=== PATIENT | female | born 1995 | race Two or more races ===

== ENCOUNTER 2019-11-08 12:03 | Observation (INO) | payer SELFPAY ==
[2019-11-08] MEDS ORDERED: ACETAMINOPHEN 325 MG TABLET. PO PRN (13:15)
[2019-11-08] MEDS ORDERED: ONDANSETRON PF 4 MG/2 ML VIAL. IVP PRN (13:15)
[2019-11-08] MEDS ORDERED: IV RINGERS,LACTATED 1000ML 1,000 ML IV SCH (13:15)
[2019-11-08 13:35] LABS: BILIRUBIN,URINE NEGATIVE (NEG); CLARITY,URINE CLEAR; COLOR,URINE YELLOW; NITRITE,URINE NEGATIVE (NEG); PH,URINE 7.5 (<5.0-8.0); PROTEIN,URINE NEGATIVE (NEG-TRACE); UROBILINOGEN,URINE 0.2 mg/dL (0.2 mg/dL)
[2019-11-08 13:49] LABS: BARBITURATES NEG (NEG); BENZODIAZEPINES NEG (NEG); CANNABINOIDS NEG (NEG); COCAINE NEG (NEG); METHADONE NEG (NEG); OPIATES NEG (NEG); PHENCYCLIDINE NEG (NEG)
[2019-11-08 13:50] LABS: AMPHETAMINE/METHAMPHETAMINE NEG (NEG)
[2019-11-08 13:51] LABS: SQUAMOUS EPITHELIAL CELL,UR MANY /LPF
[2019-11-08 13:52] LABS: BACTERIA,URINE MODERATE /HPF (0-FEW); RBC,URINE 0 /HPF (0-2)
== END 2019-11-08 14:20 | disposition home or self-care (01) ==
LOC: 3 SO LND 12:03
PROVIDERS: ADMIT Obstetrics & Gynecology; ATTEND Obstetrics & Gynecology
DX: O99.89 Other specified diseases and conditions complicating pregnancy, childbirth and the puerperium (principal); M54.5 Low back pain; Z3A.28 28 weeks gestation of pregnancy; Z79.899 Other long term (current) drug therapy
CPT/HCPCS: 80307; 81001; 87086; G0378; G0379

== ENCOUNTER → 2020-01-21 | Outpatient (CLI) | payer SELFPAY | END | disposition home or self-care (01) | LOC: LAB 11:56 | PROVIDERS: ATTEND Obstetrics & Gynecology | DX: Z20.828 Contact with and (suspected) exposure to other viral communicable diseases (principal) | CPT/HCPCS: U0003-CS ==

== ENCOUNTER 2020-01-25 09:39 | Inpatient (IN) | payer SELFPAY ==
[~2020-01-25] VITALS: Ht 144.8 cm; Wt 56.7 kg
[2020-01-25] MEDS ORDERED: CITRIC ACID/SODIUM CITRATE 30 ML SOLUTION. PO ONE (10:00)
[2020-01-25] MEDS ORDERED: IBUPROFEN 400 MG TABLET. PO PRN (10:00)
[2020-01-25] MEDS ORDERED: 0.9 % SODIUM CHLORIDE 10 ML DISP.SYRIN. IV PRN ×2 (10:00→13:45)
[2020-01-25] MEDS ORDERED: OXYTOCIN 30 UNIT/500 ML PREMIX 500 ML IV PRN ×3 (10:00→13:45)
[2020-01-25] MEDS ORDERED: TERBUTALINE 1 MG/ML VIAL. SQ PRN (10:00)
[2020-01-25] MEDS ORDERED: LIDOCAINE 1% PF 30 ML VIAL. INJ PRN (10:00)
[2020-01-25 10:25] VITALS: BP 102/64
[2020-01-25 10:48] LABS: BASO % 0 % (0-3); EOS # 0.1 x10^3/uL (0.0-0.7); EOS % 1 % (0-3); HEMATOCRIT 30.4 % (36.0-47.0); HEMOGLOBIN 9.6 g/dL (12.0-15.5); LYMPH # 2.8 x10^3/uL (1.0-4.8); LYMPH % 29 % (24-48); MEAN CORPUSCULAR HEMOGLOBIN 21 pg (25-35); MEAN CORPUSCULAR HGB CONC 32 g/dL (31-37); MEAN CORPUSCULAR VOLUME 66 fL (79-100); MONO # 0.6 x10^3/uL (0.0-1.1); MONO % 6 % (0-9); NEUT # 6.2 x10^3/uL (1.8-7.7); NEUT % 64 % (31-73); PLATELET COUNT 333 x10^3/uL (140-400); RED BLOOD COUNT 4.63 x10^6/uL (3.50-5.40); RED CELL DISTRIBUTION WIDTH 15.6 % (11.5-14.5)
[2020-01-25] MEDS: IV RINGERS,LACTATED 1000ML 1,000 ML IV SCH ×3 (11:11→15:49)
[2020-01-25] MEDS ORDERED: OXYTOCIN 10 UNIT/ML VIAL. ONE ×3 (11:24→13:02)
[2020-01-25] MEDS ORDERED: PHENYLEPHRINE in 0.9% NACL PF 1 MG/10 ML SYRINGE. IV ONE (11:24)
[2020-01-25] MEDS ORDERED: ePHEDrine PF IN SALINE 50 MG/10 ML SYRINGE. IV ONE (11:24)
[2020-01-25] MEDS ORDERED: ONDANSETRON PF 4 MG/2 ML VIAL. ONE (11:24)
[2020-01-25] MEDS ORDERED: MORPHINE PF 10 MG/10 ML AMPUL. ONE (11:25)
[2020-01-25] MEDS ORDERED: fentaNYL PF VIAL 100 MCG/2 ML VIAL ONE (11:25)
[2020-01-25 11:30] LABS: HYPOCHROMIA PRESENT; MICROCYTOSIS PRESENT; PLT ESTIMATE ADEQUATE (ADEQUATE); WHITE BLOOD COUNT 9.7 x10^3/uL (4.0-11.0)
--- NOTE | 2020-01-25 12:43 | PDOC1 ---
OB - History Hx of Present Care: Good Care Ultrasounds: Normal mid trimester US Obstetrical Complications: None Medical Complications: None Past Family/Social History * Past Medical, Surgical, Family and Obstetric Histories reviewed from chart. Rubella: Immune RPR/VDRL: Negative GBS Status: Negative HBsAG: Negative OB - Chief Complaint & HPI Date of Admission: Date of Admission: Jan 25, 2020 at 09:39 Chief Complaint/History : 2 Para: 1 EGA: 39 Reason for admission: section Indication for : desires repeat Admission Nurse Assessment Rev: Yes OB - Admission Exam Physical Exam Vitals: VS - Last 72 Hours, by Label Date Time Temp Pulse Resp B/P (MAP) Pulse Ox O2 Delivery O2 Flow Rate FiO2 01/25/20 10:25 98.9 97 20 102/64 (77) 98.9 HEENT: Normal Heart: Regular Rate Lungs: Clear Abdomen: Gravid, Non tender, Soft Extremities: Edema Reflexes: Normal Cervical Dilatation: None Effacement: 25% Station: -3 Membranes: Intact Accelerations: Accelerations Present Decelerations: No decelerations Contractions on Admission: >10 Minutes Apart Text A: 39 wks IUP Previous c/s P; Admit repeat c/s. YANET LLANES Jr, MD Jan 25, 2020 12:43
--- NOTE | 2020-01-25 13:36 | PDOC4 ---
OB Operative Note Date: Jan 25, 2020 PRE OP DIAGNOSIS: Previoujs C- section POST OP DIAGNOSIS: Previous C- section OPERATION PERFORMED: R [facility] Surgeon Dr. Strickland Anesthesia: Regional (Spinal) Blood Loss 500 ml Specimen placenta and OB Findings: Position (Breech), Sex (Male), (8/9), Weight (6 Lb 12 oz) Complications none Additional Remarks pt. YANET Trejo Jr, MD Jan 25, 2020 13:36
[2020-01-25] MEDS ORDERED: SIMETHICONE 80 MG TAB.CHEW PO PRN (13:45)
[2020-01-25] MEDS ORDERED: ZOLPIDEM 5 MG TABLET. PO PRN (13:45)
[2020-01-25] MEDS ORDERED: MAG HYDROX/ALUMINUM HYD/SIMETH 30 ML ORAL.SUSP PO PRN (13:45)
[2020-01-25] MEDS ORDERED: ONDANSETRON PF 4 MG/2 ML VIAL. IV PRN (13:45)
[2020-01-25] MEDS ORDERED: diphenhydrAMINE ORAL ELIXIR 12.5 MG/5 ML ML PO PRN (13:45)
[2020-01-25] MEDS ORDERED: KETOROLAC 30 MG/ML VIAL. IV PRN (13:45)
--- NOTE | 2020-01-25 13:55 | OP ---
DATE OF SURGERY: 01/25/2020 PREOPERATIVE DIAGNOSES: 1. A 39 weeks intrauterine . 2. Previous section. POSTOPERATIVE DIAGNOSES: 1. A 39 weeks intrauterine . 2. Previous section. PROCEDURE: Repeat low transverse section. SURGEON: Yanet Strickland MD ANESTHESIA: Spinal. ESTIMATED BLOOD LOSS: 500 mL. COMPLICATIONS: None. FINDINGS: Viable male infant, Apgars 8 and 9, weight 6 pounds 12 ounces. Three-vessel cord placenta delivered manually intact. SUMMARY: A 24-year-old 2, para 1 at 39 weeks, presented for repeat section. She was counseled on the risks, benefits and expectations and voiced clear understanding to proceed. DESCRIPTION OF PROCEDURE: Pfannenstiel skin incision was made with the scalpel down to and through the fascia. Fascia was extended laterally using curved Price scissors. The superior edge of fascia was grasped with two Beto clamps and dissected free of the abdominal rectus muscle using blunt dissection along with Bovie cautery. The same process took place inferiorly. The abdominal rectus muscle dissected bluntly at the midline. Peritoneum was grasped with 2 hemostats and entered sharply with Metzenbaum scissors. This incision was extended superiorly as well as inferiorly. The Wilber ring retractor was placed. A low transverse hysterotomy incision was made with scalpel down to the infant. Hysterotomy incision was extended laterally and superiorly digitally. The was found to be breech presentation. With the aid of fundal pressure, the infant's buttocks was delivered up to the knees in which the legs were flexed and both legs were delivered. With additional fundal pressure, the infant to the subscapular region was delivered, in which both arms were flexed and delivered. With additional fundal pressure, the 's head was delivered in atraumatic manner. The was suctioned with bulb syringe orally and nasally, umbilical cord was clamped twice and cut and viable male infant was handed to waiting nursing staff. Umbilical cord blood was then obtained. Three-vessel cord placenta was delivered manually intact. The uterus was then exteriorized and cleared of clot and debris with moist lap. Hysterotomy incision was reapproximated using #1 Vicryl suture in running locked fashion and imbricated layer of #1 Vicryl suture in running fashion was placed. A [id number] was placed in the midline of the hysterotomy incision for better hemostasis. Uterus palpated firm. Fallopian tubes and ovaries appeared normal bilaterally. Posterior cul-de-sac was cleared of clot and debris with moist lap. The uterus was then returned to the abdomen. The pericolic gutters were cleared of clot and debris with moist lap. Hysterotomy incision was reviewed and was hemostatic. The Wilber ring retractor was removed. The peritoneum was reapproximated using #1 Vicryl suture in a running fashion. The abdominal rectus muscles were reapproximated using 1 Vicryl suture in running fashion as well. The fascia was reapproximated using Stratafix in running fashion. Skin was reapproximated using 4-0 Vicryl suture in subcuticular manner. The patient tolerated the procedure well and was taken to recovery room in stable condition. Sponge and needle count correct x 3. YANET STRICKLAND MD DR: JATINDER/wesley JOB#: [id number] / [id number]
[2020-01-25 16:30] VITALS: BP 103/66
[2020-01-25 17:00] VITALS: BP 99/57
[2020-01-25 18:00] VITALS: BP 103/63
[2020-01-25] MEDS ORDERED: FLU VACC QS 2020-21(6MOS+)/PF 0.5 ML SYRINGE. VAX IM ONE (18:00)
[2020-01-25] MEDS: KETOROLAC 30 MG/ML VIAL. IV PRN (21:16)
[2020-01-25 21:47] VITALS: BP 97/58
[2020-01-26] MEDS: IV RINGERS,LACTATED 1000ML 1,000 ML IV SCH (01:44)
[2020-01-26 02:00] VITALS: BP 90/60
[2020-01-26] MEDS: KETOROLAC 30 MG/ML VIAL. IV PRN (05:49)
[2020-01-26 06:00] VITALS: BP 94/65
[2020-01-26 07:36] LABS: BASO # 0.1 x10^3/uL (0.0-0.2); BASO % 1 % (0-3); EOS # 0.1 x10^3/uL (0.0-0.7); EOS % 1 % (0-3); HEMATOCRIT 26.7 % (36.0-47.0); HEMOGLOBIN 8.5 g/dL (12.0-15.5); LYMPH # 1.9 x10^3/uL (1.0-4.8); LYMPH % 23 % (24-48); MEAN CORPUSCULAR HEMOGLOBIN 21 pg (25-35); MEAN CORPUSCULAR HGB CONC 32 g/dL (31-37); MEAN CORPUSCULAR VOLUME 66 fL (79-100); MONO # 0.6 x10^3/uL (0.0-1.1); MONO % 8 % (0-9); NEUT # 5.6 x10^3/uL (1.8-7.7); NEUT % 68 % (31-73); PLATELET COUNT 288 x10^3/uL (140-400); RED BLOOD COUNT 4.04 x10^6/uL (3.50-5.40); RED CELL DISTRIBUTION WIDTH 15.9 % (11.5-14.5); WHITE BLOOD COUNT 8.2 x10^3/uL (4.0-11.0)
[2020-01-26 10:25] VITALS: BP 98/64
[2020-01-26] MEDS: DOCUSATE SODIUM 100 MG CAPSULE. PO PRN (10:47)
[2020-01-26] MEDS: MULTIVITAMIN with MINERAL TABLET. PO SCH (10:47)
--- NOTE | 2020-01-26 12:35 | PDOC ---
OB Progress Note Date of Service 01/26/20 Time of Evaluation 1230 Notes Pt. feeling well. No complaints. Pain controlled. Pt. tolerating regular diet and ambulating. Lab Laboratory Tests Test 01/25/20 10:20 01/26/20 07:25 White Blood Count 9.7 x10^3/uL (4.0-11.0) 8.2 x10^3/uL (4.0-11.0) Red Blood Count 4.63 x10^6/uL (3.50-5.40) 4.04 x10^6/uL (3.50-5.40) Hemoglobin 9.6 g/dL (12.0-15.5) 8.5 g/dL (12.0-15.5) Hematocrit 30.4 % (36.0-47.0) 26.7 % (36.0-47.0) Mean Corpuscular Volume 66 fL (79-100) 66 fL (79-100) Mean Corpuscular Hemoglobin 21 pg (25-35) 21 pg (25-35) Mean Corpuscular Hemoglobin Concent 32 g/dL (31-37) 32 g/dL (31-37) Red Cell Distribution Width 15.6 % (11.5-14.5) 15.9 % (11.5-14.5) Platelet Count 333 x10^3/uL (140-400) 288 x10^3/uL (140-400) Neutrophils (%) (Auto) 64 % (31-73) 68 % (31-73) Lymphocytes (%) (Auto) 29 % (24-48) 23 % (24-48) Monocytes (%) (Auto) 6 % (0-9) 8 % (0-9) Eosinophils (%) (Auto) 1 % (0-3) 1 % (0-3) Basophils (%) (Auto) 0 % (0-3) 1 % (0-3) Neutrophils # (Auto) 6.2 x10^3/uL (1.8-7.7) 5.6 x10^3/uL (1.8-7.7) Lymphocytes # (Auto) 2.8 x10^3/uL (1.0-4.8) 1.9 x10^3/uL (1.0-4.8) Monocytes # (Auto) 0.6 x10^3/uL (0.0-1.1) 0.6 x10^3/uL (0.0-1.1) Eosinophils # (Auto) 0.1 x10^3/uL (0.0-0.7) 0.1 x10^3/uL (0.0-0.7) Basophils # (Auto) 0.0 x10^3/uL (0.0-0.2) 0.1 x10^3/uL (0.0-0.2) Platelet Estimate Adequate (ADEQUATE) Hypochromasia Present Microcytosis Present Treponema pallidum Antibody Nonreactive (Nonreactive) Laboratory Tests Test 01/26/20 07:25 White Blood Count 8.2 x10^3/uL (4.0-11.0) Red Blood Count 4.04 x10^6/uL (3.50-5.40) Hemoglobin 8.5 g/dL (12.0-15.5) Hematocrit 26.7 % (36.0-47.0) Mean Corpuscular Volume 66 fL (79-100) Mean Corpuscular Hemoglobin 21 pg (25-35) Mean Corpuscular Hemoglobin Concent 32 g/dL (31-37) Red Cell Distribution Width 15.9 % (11.5-14.5) Platelet Count 288 x10^3/uL (140-400) Neutrophils (%) (Auto) 68 % (31-73) Lymphocytes (%) (Auto) 23 % (24-48) Monocytes (%) (Auto) 8 % (0-9) Eosinophils (%) (Auto) 1 % (0-3) Basophils (%) (Auto) 1 % (0-3) Neutrophils # (Auto) 5.6 x10^3/uL (1.8-7.7) Lymphocytes # (Auto) 1.9 x10^3/uL (1.0-4.8) Monocytes # (Auto) 0.6 x10^3/uL (0.0-1.1) Eosinophils # (Auto) 0.1 x10^3/uL (0.0-0.7) Basophils # (Auto) 0.1 x10^3/uL (0.0-0.2) Medications Current Medications Cefazolin Sodium/ Dextrose 50 ml @ 100 mls/hr 1X ONCE IV Last administered on 01/25/20at 11:45; Start 01/25/20 at 10:00; Stop 01/25/20 at 10:29; Status DC Citric Acid/ Sodium Citrate (Bicitra) 30 ml 1X ONCE PO Last administered on 01/25/20at 11:12; Start 01/25/20 at 10:00; Stop 01/25/20 at 10:07; Status DC Sodium Chloride (Normal Saline Flush) 3 ml QSHIFT PRN IV AFTER MEDS AND BLOOD DRAWS; Start 01/25/20 at 10:00 Ringer's Solution 1,000 ml @ 125 mls/hr Q8H IV Last administered on 01/26/20at 01:44; Start 01/25/20 at 09:49 Terbutaline Sulfate (Brethine) 0.25 mg 1X PRN PRN SQ SEE COMMENTS; Start 01/25/20 at 10:00; Stop 01/26/20 at 09:59; Status DC Lidocaine HCl (Xylocaine 1% Pf 30ml Vial) 30 ml 1X PRN PRN INJ SEE COMMENTS; Start 01/25/20 at 10:00; Stop 01/27/20 at 09:59 Oxytocin/Sodium Chloride 500 ml @ 0 mls/hr CONT PRN IV SEE I/O RECORD; Start 01/25/20 at 10:00 Oxytocin/Sodium Chloride 500 ml @ 0 mls/hr CONT PRN PRN IV Post delivery bleeding; Start 01/25/20 at 10:00 Ibuprofen (Motrin) 800 mg PRN Q6HRS PRN PO PAIN; Start 01/25/20 at 10:00; Stop 01/25/20 at 17:29; Status DC Ondansetron HCl (Zofran) 4 mg STK-MED ONCE .ROUTE ; Start 01/25/20 at 11:24; Stop 01/25/20 at 11:25; Status DC Phenylephrine HCl (PHENYLEPHRINE in 0.9% NACL PF) 1 mg STK-MED ONCE IV ; Start 01/25/20 at 11:24; Stop 01/25/20 at 11:25; Status DC Oxytocin (Pitocin) 10 unit STK-MED ONCE .ROUTE ; Start 01/25/20 at 11:24; Stop 01/25/20 at 11:25; Status DC Ephedrine Sulfate (ePHEDrine PF IN SALINE SYRINGE) 50 mg STK-MED ONCE IV ; Start 01/25/20 at 11:24; Stop 01/25/20 at 11:25; Status DC Morphine Sulfate (Morphine Preservative Free) 10 mg STK-MED ONCE .ROUTE ; Start 01/25/20 at 11:25; Stop 01/25/20 at 11:25; Status DC Fentanyl Citrate (Fentanyl 2ml Vial) 100 mcg STK-MED ONCE .ROUTE ; Start 01/25/20 at 11:25; Stop 01/25/20 at 11:25; Status DC Oxytocin (Pitocin) 10 unit STK-MED ONCE .ROUTE ; Start 01/25/20 at 13:02; Stop 01/25/20 at 13:02; Status DC Oxytocin (Pitocin) 10 unit STK-MED ONCE .ROUTE ; Start 01/25/20 at 13:02; Stop 01/25/20 at 13:02; Status DC Ketorolac Tromethamine (Toradol 30mg Vial) 30 mg PRN Q6HRS PRN IV PAIN Last administered on 01/26/20at 05:49; Start 01/25/20 at 13:15; Stop 01/30/20 at 13:14 Sodium Chloride (Normal Saline Flush) 3 ml QSHIFT PRN IV AFTER MEDS AND BLOOD DRAWS; Start 01/25/20 at 13:45 Oxytocin/Sodium Chloride 500 ml @ 125 mls/hr CONT PRN IV EXCESSIVE POST- BLEEDING; Start 01/25/20 at 13:45; Stop 01/25/20 at 21:44; Status DC Ibuprofen (Motrin) 800 mg PRN Q8HRS PRN PO INFLAMMATION; Start 01/25/20 at 1 3:45 Ondansetron HCl (Zofran) 4 mg PRN Q6HRS PRN IV NAUSEA/VOMITING; Start 01/25/20 at 13:45 Docusate Sodium (Colace) 100 mg PRN BID PRN PO HARD STOOL Last administered on 01/26/20at 10:47; Start 01/25/20 at 13:45 Al Hydroxide/Mg Hydroxide (Mylanta Plus Xs) 30 ml PRN Q4HRS PRN PO HEARTBURN / GAS; Start 01/25/20 at 13:45 Simethicone (Gas-X) 80 mg PRN AFTMEALHC PRN PO GAS / BLOATING; Start 01/25/20 at 13:45 Diphenhydramine HCl (Benadryl Oral Elixir) 12.5 mg PRN Q6HRS PRN PO ITCHING; Start 01/25/20 at 13:45 Ferrous Sulfate (Feosol) 325 mg BIDWMEALS PO ; Start 01/25/20 at 17:00 Zolpidem Tartrate (Ambien) 5 mg PRN QHS PRN PO INSOMNIA, MAY REPEAT X1; Start 01/25/20 at 13:45 Oxycodone/ Acetaminophen (Percocet 5/325) 2 tab PRN Q4HRS PRN PO MODERATE PAIN, SEVERE PAIN; Start 01/25/20 at 13:45 Ketorolac Tromethamine (Toradol 30mg Vial) 30 mg PRN Q6HRS PRN IV PAIN; Start 01/25/20 at 13:45; Stop 01/30/20 at 13:44 Multivitamins (Thera M Plus) 1 tab DAILY PO Last administered on 01/26/20at 10:47; Start 01/26/20 at 09:00 Influenza Virus Vaccine Quadrival (Fluzone Quad Syringe) 0.5 ml ONCE ONCE VAX IM ; Start 01/25/20 at 18:00; Stop 01/25/20 at 18:01; Status DC Exam Abd: soft, mild tenderness, fundus firm Incision site: clean, dry and intact Assessment POD#1 s/p repeat c/s Plan of Care: Continue current Tx, Mgmt YANET LLANES Jr, MD Jan 26, 2020 12:35
[2020-01-26 14:35] VITALS: BP 99/61
[2020-01-26] MEDS: IBUPROFEN 400 MG TABLET. PO PRN (14:56)
[2020-01-26 20:00] VITALS: BP 94/62
[2020-01-27 00:04] VITALS: BP 98/67
[2020-01-27] MEDS: oxyCODONE/APAP 5/325 1 TAB TABLET PO PRN ×2 (01:02→18:04)
[2020-01-27 06:43] VITALS: BP 98/66
[2020-01-27 08:10] VITALS: BP 98/64
--- NOTE | 2020-01-27 09:03 | PDOC ---
OB Progress Note Date of Service 01/27/20 Time of Evaluation 0900 Notes PT. feeling well. No complaints. Lab Laboratory Tests Test 01/25/20 10:20 01/26/20 07:25 White Blood Count 9.7 x10^3/uL (4.0-11.0) 8.2 x10^3/uL (4.0-11.0) Red Blood Count 4.63 x10^6/uL (3.50-5.40) 4.04 x10^6/uL (3.50-5.40) Hemoglobin 9.6 g/dL (12.0-15.5) 8.5 g/dL (12.0-15.5) Hematocrit 30.4 % (36.0-47.0) 26.7 % (36.0-47.0) Mean Corpuscular Volume 66 fL (79-100) 66 fL (79-100) Mean Corpuscular Hemoglobin 21 pg (25-35) 21 pg (25-35) Mean Corpuscular Hemoglobin Concent 32 g/dL (31-37) 32 g/dL (31-37) Red Cell Distribution Width 15.6 % (11.5-14.5) 15.9 % (11.5-14.5) Platelet Count 333 x10^3/uL (140-400) 288 x10^3/uL (140-400) Neutrophils (%) (Auto) 64 % (31-73) 68 % (31-73) Lymphocytes (%) (Auto) 29 % (24-48) 23 % (24-48) Monocytes (%) (Auto) 6 % (0-9) 8 % (0-9) Eosinophils (%) (Auto) 1 % (0-3) 1 % (0-3) Basophils (%) (Auto) 0 % (0-3) 1 % (0-3) Neutrophils # (Auto) 6.2 x10^3/uL (1.8-7.7) 5.6 x10^3/uL (1.8-7.7) Lymphocytes # (Auto) 2.8 x10^3/uL (1.0-4.8) 1.9 x10^3/uL (1.0-4.8) Monocytes # (Auto) 0.6 x10^3/uL (0.0-1.1) 0.6 x10^3/uL (0.0-1.1) Eosinophils # (Auto) 0.1 x10^3/uL (0.0-0.7) 0.1 x10^3/uL (0.0-0.7) Basophils # (Auto) 0.0 x10^3/uL (0.0-0.2) 0.1 x10^3/uL (0.0-0.2) Platelet Estimate Adequate (ADEQUATE) Hypochromasia Present Microcytosis Present Treponema pallidum Antibody Nonreactive (Nonreactive) Medications Current Medications Cefazolin Sodium/ Dextrose 50 ml @ 100 mls/hr 1X ONCE IV Last administered on 01/25/20at 11:45; Start 01/25/20 at 10:00; Stop 01/25/20 at 10:29; Status DC Citric Acid/ Sodium Citrate (Bicitra) 30 ml 1X ONCE PO Last administered on 01/25/20at 11:12; Start 01/25/20 at 10:00; Stop 01/25/20 at 10:07; Status DC Sodium Chloride (Normal Saline Flush) 3 ml QSHIFT PRN IV AFTER MEDS AND BLOOD DRAWS; Start 01/25/20 at 10:00 Ringer's Solution 1,000 ml @ 125 mls/hr Q8H IV Last administered on 01/26/20at 01:44; Start 01/25/20 at 09:49 Terbutaline Sulfate (Brethine) 0.25 mg 1X PRN PRN SQ SEE COMMENTS; Start 01/25/20 at 10:00; Stop 01/26/20 at 09:59; Status DC Lidocaine HCl (Xylocaine 1% Pf 30ml Vial) 30 ml 1X PRN PRN INJ SEE COMMENTS; Start 01/25/20 at 10:00; Stop 01/27/20 at 09:59 Oxytocin/Sodium Chloride 500 ml @ 0 mls/hr CONT PRN IV SEE I/O RECORD; Start 01/25/20 at 10:00 Oxytocin/Sodium Chloride 500 ml @ 0 mls/hr CONT PRN PRN IV Post delivery bleeding; Start 01/25/20 at 10:00 Ibuprofen (Motrin) 800 mg PRN Q6HRS PRN PO PAIN; Start 01/25/20 at 10:00; Stop 01/25/20 at 17:29; Status DC Ondansetron HCl (Zofran) 4 mg STK-MED ONCE .ROUTE ; Start 01/25/20 at 11:24; Stop 01/25/20 at 11:25; Status DC Phenylephrine HCl (PHENYLEPHRINE in 0.9% NACL PF) 1 mg STK-MED ONCE IV ; Start 01/25/20 at 11:24; Stop 01/25/20 at 11:25; Status DC Oxytocin (Pitocin) 10 unit STK-MED ONCE .ROUTE ; Start 01/25/20 at 11:24; Stop 01/25/20 at 11:25; Status DC Ephedrine Sulfate (ePHEDrine PF IN SALINE SYRINGE) 50 mg STK-MED ONCE IV ; Start 01/25/20 at 11:24; Stop 01/25/20 at 11:25; Status DC Morphine Sulfate (Morphine Preservative Free) 10 mg STK-MED ONCE .ROUTE ; Start 01/25/20 at 11:25; Stop 01/25/20 at 11:25; Status DC Fentanyl Citrate (Fentanyl 2ml Vial) 100 mcg STK-MED ONCE .ROUTE ; Start 01/25/20 at 11:25; Stop 01/25/20 at 11:25; Status DC Oxytocin (Pitocin) 10 unit STK-MED ONCE .ROUTE ; Start 01/25/20 at 13:02; Stop 01/25/20 at 13:02; Status DC Oxytocin (Pitocin) 10 unit STK-MED ONCE .ROUTE ; Start 01/25/20 at 13:02; Stop 01/25/20 at 13:02; Status DC Ketorolac Tromethamine (Toradol 30mg Vial) 30 mg PRN Q6HRS PRN IV PAIN Last administered on 01/26/20at 05:49; Start 01/25/20 at 13:15; Stop 01/30/20 at 13:14 Sodium Chloride (Normal Saline Flush) 3 ml QSHIFT PRN IV AFTER MEDS AND BLOOD DRAWS; Start 01/25/20 at 13:45 Oxytocin/Sodium Chloride 500 ml @ 125 mls/hr CONT PRN IV EXCESSIVE POST- BLEEDING; Start 01/25/20 at 13:45; Stop 01/25/20 at 21:44; Status DC Ibuprofen (Motrin) 800 mg PRN Q8HRS PRN PO INFLAMMATION Last administered on 01/26/20at 14:56; Start 01/25/20 at 13:45 Ondansetron HCl (Zofran) 4 mg PRN Q6HRS PRN IV NAUSEA/VOMITING; Start 01/25/20 at 13:45 Docusate Sodium (Colace) 100 mg PRN BID PRN PO HARD STOOL Last administered on 01/26/20at 10:47; Start 01/25/20 at 13:45 Al Hydroxide/Mg Hydroxide (Mylanta Plus Xs) 30 ml PRN Q4HRS PRN PO HEARTBURN / GAS; Start 01/25/20 at 13:45 Simethicone (Gas-X) 80 mg PRN AFTMEALHC PRN PO GAS / BLOATING; Start 01/25/20 at 13:45 Diphenhydramine HCl (Benadryl Oral Elixir) 12.5 mg PRN Q6HRS PRN PO ITCHING; Start 01/25/20 at 13:45 Ferrous Sulfate (Feosol) 325 mg BIDWMEALS PO ; Start 01/25/20 at 17:00 Zolpidem Tartrate (Ambien) 5 mg PRN QHS PRN PO INSOMNIA, MAY REPEAT X1; Start 01/25/20 at 13:45 Oxycodone/ Acetaminophen (Percocet 5/325) 2 tab PRN Q4HRS PRN PO MODERATE PAIN, SEVERE PAIN Last administered on 01/27/20at 01:02; Start 01/25/20 at 13:45 Ketorolac Tromethamine (Toradol 30mg Vial) 30 mg PRN Q6HRS PRN IV PAIN; Start 01/25/20 at 13:45; Stop 01/30/20 at 13:44 Multivitamins (Thera M Plus) 1 tab DAILY PO Last administered on 01/26/20at 10:47; Start 01/26/20 at 09:00 Influenza Virus Vaccine Quadrival (Fluzone Quad Syringe) 0.5 ml ONCE ONCE VAX IM ; Start 01/25/20 at 18:00; Stop 01/25/20 at 18:01; Status DC Exam Abd: soft, non tender, fundus firm Incision site: clean, dry and intact Assessment POD#2 s/p repeat c/s Plan of Care: Continue current Tx, Mgmt YANET LLANES Jr, MD Jan 27, 2020 09:03
[2020-01-27] MEDS: FERROUS SULFATE 325 MG TABLET. PO SCH ×2 (09:42→18:03)
[2020-01-27] MEDS: IBUPROFEN 400 MG TABLET. PO PRN (09:42)
[2020-01-27 15:00] VITALS: BP 102/59
[2020-01-27 20:15] VITALS: BP 102/63
[2020-01-28] MEDS: DOCUSATE SODIUM 100 MG CAPSULE. PO PRN (04:26)
[2020-01-28] MEDS: IBUPROFEN 400 MG TABLET. PO PRN (04:27)
[2020-01-28] MEDS: oxyCODONE/APAP 5/325 1 TAB TABLET PO PRN ×2 (04:27→09:53)
[2020-01-28 04:39] VITALS: BP 94/62
[2020-01-28 08:15] VITALS: BP 99/66
[2020-01-28] MEDS: FERROUS SULFATE 325 MG TABLET. PO SCH (08:17)
[2020-01-28] MEDS: MULTIVITAMIN with MINERAL TABLET. PO SCH (08:17)
--- NOTE | 2020-01-28 11:22 | PDOC3 ---
OB DISCHARGE SUMMARY DATE OF ADMISSION: 01/25/20 DATE OF DISCHARGE: 01/28/20 REASON FOR ADMISSION: section INTRAPARTUM PROCEDURES: : Low Cerv Trans DISCHARGE DIAGNOSIS: Term Delivered DISCHARGE INFORMATION: Activity (ad yves), Diet (regular), Instructions (pelvic rest x 6 wks, no driving x 2 wks, no lifting > 20 lbs x 6 wks) HOSPITAL COURSE Term gestation delivered repeat c/s without complications. YANET LLANES Jr, MD Jan 28, 2020 11:22
[2020-01-28] MEDS ORDERED: IBUP-1027 PO (11:24)
[2020-01-28] MEDS ORDERED: OXYC1TAB15 PO (11:24)
[2020-01-28] MEDS ORDERED: DOCU-153 PO (11:24)
--- NOTE | 2020-01-28 11:24 | DISCH ---
DISCHARGE INSTRUCTIONS Condition on Discharge Condition on Discharge: Stable Activity After Discharge Activity Instructions for Disc: Activity as tolerated Lifting Instructions after Dis: No heavy lifting Driving Instructions after Dis: No driving for 2 weeks Diet after Discharge Diet after Discharge: Regular Contacting the DRPiper after DC Call your doctor for: Concerns you may have Follow-Up Follow up with: Dr. Strickland in 2 wks. YANET STRICKLAND Jr, MD Jan 28, 2020 11:24
== END 2020-01-28 14:00 | disposition home or self-care (01) | DRG 788 ==
LOC: OBSVTOIN 09:39 → 3 SO LND 09:39 → 3 NORTH 16:30
PROVIDERS: ADMIT Obstetrics & Gynecology; ATTEND Obstetrics & Gynecology
PROC: 10D00Z1 Extraction of Products of Conception, Low, Open Approach (ICD-10-PCS; principal; 2020-01-25)
DX: O34.211 Maternal care for low transverse scar from previous cesarean delivery (principal); O32.1XX0 Maternal care for breech presentation, not applicable or unspecified; Z37.0 Single live birth; Z3A.39 39 weeks gestation of pregnancy
CPT/HCPCS: 36415; 85025; 86592; 86850; 86900; 86901; 90471; J0690; J1885; J2274; J2370; J2405; J2590; J3010; J7120; G0378